=== PATIENT | male | born 1995 | race Caucasian/White ===

== ENCOUNTER → 2018-05-18 12:54 | Outpatient (CLI) | payer OTHER, SELFPAY ==
--- NOTE | 2018-05-18 12:54 | ONE_ITS ---
DATE: MAY 18, 2018 ASSESSMENT: Acute lumbar strain, consider disc etiology. PLAN: I contacted [facility] where he will be seen tomorrow morning. He will use Ibuprofen 800 mg. t.i.d., no more. Additionally he will obtain Acetaminophen 500 mg. tablets and use two of those t.i.d. between or with the Ibuprofen. He may use some Flexeril 10 mg. p.o. at h.s. p.r.n. and up to t.i.d. including the h.s. dose p.r.n. He understands this is likely to be very sedating. 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 Also a trial of Lidocaine 5% patches to be applied q. 12 hours p.r.n. Out of work as reflected on work status form. I will follow-up with him on Wednesday, sooner if needed. Greater than 50% of this visit was spent in planning and coordination of care. 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 SUBJECTIVE: Mr. Grande comes in today for evaluation of intense low back pain which he says began on WednesdayMay 16. He explains that he was involved in moving a tub of concrete when this occurred. He says he was putting pliers on to lift the tub, which typically weighs approximately 75 pounds when filled with concrete. He says on Wednesday however, per his account, the tub was inadvertently filled with in excess of 200 pounds. As he attempted to lift the tub he experienced a sudden intense pain across his lumbar region radiating down both legs. It was and remains worse on the left but it continues to radiate all the way down both legs. On the left it radiates to the ankle, sometimes to the toes and on the right it goes all the way to the mid-calf. The aching pain across the lumbar region in addition to the radiating pain down both lower extremities is described as constant. It is worse by sitting, transitioning from sit to stand and much worse when he walks. It is also worse bearing weight on the left leg. Since this event on Wednesday, he has tried to get control of the pain with hot baths, ice packs, Ibuprofen in unspecified amounts every 6 or so hours. He also obtained a back brace which he has been using. He is not sure that it is terribly helpful but he does note that he seems to have more discomfort when he is not wearing it. Discomfort across the low back is also worsened by rotation of his pelvis or rotation at the waist. He feels the brace is helpful in preventing that type of movement or minimizing it. He has difficulty answering questions about numbness and tingling but goes into a lot of detail about shock-like sensations which occur across the torso with any rotation or bending. He has been able to find some comfort with lying flat on the floor and has been able to sleep by sleeping on a mattress placed directly on the floor. REVIEW OF SYSTEMS: He denies loss of bladder or bowel control. No abdominal pain, nausea, vomiting or other GI complaints. No chest pain, cough, wheeze or dyspnea. No swelling of lower extremities. PAST MEDICAL HISTORY: 1. Cardiac murmur in the past. 2. He states he did have one episode of back pain a couple of years ago. He could not relate it to a specific incident but it was self-limiting and much less intense that this current event. Other past history is unremarkable. MEDICATIONS: He takes no routine medications. ALLERGIES: Penicillin and all cillins. SOCIAL: Single. Lives with his significant other and her family. HABITS: Smokes 1/2 a pack of cigarette daily. Chews one can of tobacco about every 3 days. He is usually physically active with frequent exercise. OBJECTIVE: This is a 23 year-old male who is alert, cooperative but in definite acute distress. He is teary and tense. He stands or paces throughout most of the visit. Vital Signs: Blood pressure 143/72, pulse 92 and regular, respirations 18, temperature 98.9. He is 5'11 and weighs 161.5 pounds. Head: Normal. Neck: Supple. Musculoskeletal: There is no tenderness to direct palpation of the thoracic or lumbar vertebrae. Posture is side-leaning to the right. He moves cautiously and slowly to and from the examination table but eventually he is able to lie supine. This seems to be the position of greatest comfort for him. There is an area of tenderness in the left lumbar region proximal to the left SI joint. Straight leg raises - each leg extends off the examination table 15 degrees. On the left there is ipsilateral lumbar pain. With right leg extended 15 degrees there is contralateral lumbar pain. DTRs - prepatellars are 1+ bilaterally. Achilles are 1+ bilaterally. Range of motion - evaluation very limited due to pain. He is not able to attempt a heel and toe walk due to intensity of pain. Sensory of lower extremities is intact.
== END ==
PROVIDERS: Visit Provider Nurse Practitioner Family
DX: M54.5 Low back pain (principal); S39.012A Strain of muscle, fascia and tendon of lower back, initial encounter; X50.0XXA Overexertion from strenuous movement or load, initial encounter; Y99.0 Civilian activity done for income or pay
CPT/HCPCS: 99203

== ENCOUNTER → 2018-05-30 11:37 | Outpatient (CLI) | payer OTHER, SELFPAY ==
--- NOTE | 2018-05-30 21:23 | ONE_ITS ---
DATE OF SERVICE: May 30, 2018 ASSESSMENT: Acute lumbar strain with discogenic signs. PLAN: Continue aggressive PT which has included aquatic therapy. Continue stretches and dry needling techniques as tolerated. I have asked him to be sure to communicate his concerns about right lower extremity pain which did seem to change following the last treatment. He is urged to continue walking on a daily basis. I urged him to keep track of the amount of time that he is walking and add to that by a minute or so on a daily basis as tolerated. I wrote a prescription today for a TENS unit which I feel could be very beneficial to him in terms of controlled pain further. Continue PT. Continue stretches. Continue Flexeril and Tylenol as below. Hold on the ibuprofen. Initiate prednisone taper 40 mg for 4 days, 30 mg for 3 days, 20 mg for 2 days, and 10 mg for 1 day. We discussed return to work with limitations. I will see him back in one week and expect to be able to return to some light duty if he continues to progress. Greater than 50% of this visit was spent in planning and coordination of care. 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 SUBJECTIVE: He comes in today for follow-up on acute back pain which he tells me has improved somewhat. He is attending Physical Therapy three times weekly. He says initially there were some transportation difficulties but that problem has been solved with the help of Samaria Zafar and his Nurse Human Geography Instructor. He is doing regular exercises and stretches under their guidance and he has been receiving dry needling treatments. He does express some concern that following Wednesday's treatment the pain radiating down his right leg to the calf has intensified. He does state, however, that the pain previously noted down the left posterior lower extremity has resolved. He continues to have difficulty with sitting for extended periods of time. He is able to stand and he is able to walk with greater ease. He still feels that his movements are rather slow and deliberate but recently he was able to walk a half mile to a store. He says he realized part way through the walk that about half that distance would have been better tolerated. He is using the Flexeril b.i.d. He does find it to be somewhat sedating during the daytime and he is using the combination of ibuprofen and Tylenol which he does not find to be very helpful. He says he gets the most relief when performing the squat exercises that were taught by PT. REVIEW OF SYSTEMS: Continue to deny loss of bladder or bowel control. No abdominal pain, nausea, vomiting, or other GI complaints. No chest pain, cough, wheeze, or dyspnea. PAST MEDICAL HISTORY: 1. Cardiac murmur in the past. 2. In regard to back pain, a single episode years ago which resolved. MEDICATIONS: He takes no routine medications but is currently usin. Ibuprofen 800 mg t.i.d. 2. Acetaminophen 1000 mg t.i.d. 3. Flexeril 10 mg at h.s. and once during the day. ALLERGIES: Penicillin. SOCIAL: Lives with his significant other and their family. HABITS: Smokes 1/2 a pack of cigarette daily. Chews one can of tobacco every 3 days. OBJECTIVE: Alert, pleasant, cooperative, seems more comfortable than at his previous evaluation. His posture is erect. No further side leaning. His gait is non- antalgic and he is able to sit through much of today's evaluation. Musculoskeletal: Mild tenderness to direct palpation of the lumbar vertebrae. No tenderness in the paraspinous muscles or the SI joints. DTRs - prepatellars are 1+ bilaterally. Achilles are also 1+ bilaterally. Straight leg raises - left leg extends 45 degrees with ipsilateral lumbar discomfort. Right leg extends about 45 degrees with right posterior thigh discomfort. Range of motion - fingertips reach midthigh. There is pain in the left lumbar region at the end of flexion. Minimal discomfort with extension of 20 degrees. There is no pain with lateral bend or rotation. Heel and toe walk are intact. Sensory of lower extremities is intact.
== END ==
PROVIDERS: Visit Provider Nurse Practitioner Family
DX: M54.5 Low back pain (principal); S39.012D Strain of muscle, fascia and tendon of lower back, subsequent encounter; X50.0XXD Overexertion from strenuous movement or load, subsequent encounter
CPT/HCPCS: 99214

== ENCOUNTER → 2018-06-06 10:46 | Outpatient (CLI) | payer OTHER, SELFPAY ==
--- NOTE | 2018-06-06 23:01 | ONE_ITS ---
DATE OF SERVICE: June 06, 2018 ASSESSMENT: Acute lumbar pain, radicular pain resolving. PLAN: We spent time crafting work restrictions which he feels he can follow. These will be presented to his employer. He will continue PT. Continue ibuprofen and Tylenol p.r.n. His nurse medical case manager who is present will obtain the TENS unit for him. He is eager to return to a full paycheck but clearly understands he has limitations at this point. I will see him back in one week. Greater than 50% of this visit was spent in planning and coordination of care. EMPLOYER: [employer] SUBJECTIVE: Mr. Grande returns for follow-up on low back pain which he tells me has continued to improve. He is attending PT three times weekly and he finds the aquatic PT to be very helpful. Additionally, treatments with dry needling techniques have provided some relief. Today he says he is more comfortable. Initially he says he experiences pressure in the right lumbar region with sitting, but during the interview the discomfort switches to the left lumbar region. He quantifies that at 2 on a scale of 1 to 10 and describes it as an aching sensation. It no longer radiates down either extremity. He has been doing some walking on a daily basis. He walks a mile, a half mile at a time with a short rest in between, and on some days he has repeated this for a total of two miles per day. He has also been advanced with some home exercises and manual techniques. He says he has not received his TENS unit yet and did not take a prednisone taper as directed. He continues to have difficulty with no transportation and this has been very limiting. REVIEW OF SYSTEMS: No abdominal pain, nausea, vomiting, or GI complaints. No loss of bladder or bowel control. No chest pain, cough, wheeze, or dyspnea. PAST MEDICAL HISTORY: 1. History of cardiac murmur. 2. Single episode of back pain a year ago which resolved completely. CURRENT MEDICATIONS: He takes no routine medications. He is using ibuprofen 800 mg once a day or b.i.d.; Tylenol 1000 mg b.i.d. He is no longer using the Flexeril. He is not using any lidocaine patches. ALLERGIES: Penicillin SOCIAL: Lives with his significant other and their young family. HABITS: Smokes a half pack of cigarettes daily. Chews a can of tobacco every three days. OBJECTIVE: He is alert, pleasant, cooperative. He has some difficulty with eye contact and does look distressed citing finances as the reason. He ambulates to and from the exam room with ease. No difficulty moving from chair to exam table. Musculoskeletal exam: There is some mild tenderness today in the paraspinous muscles of the left lateral thoracic region. No spasm. None in the lumbars and none to direct palpation of the thoracic or lumbar vertebrae. DTRs - prepatellars are 2+ bilaterally. Achilles are 1+ bilaterally. Straight leg raises - each leg extends about 60 degrees with central lumbar discomfort. Range of motion - fingertips reach just beyond knee level with left lumbar discomfort resulting at the end of that flexion. It is resolved quickly by extension. He can extend about 20 degrees, again with left lumbar discomfort resulting. No lumbar pain with lateral bend or rotation in either direction. Quft-[id number] walk are intact. Sensory of lower extremities is intact.
== END ==
PROVIDERS: Visit Provider Nurse Practitioner Family
DX: M54.5 Low back pain (principal); S39.012D Strain of muscle, fascia and tendon of lower back, subsequent encounter
CPT/HCPCS: 99214

== ENCOUNTER 2018-06-10 15:00 | Outpatient (RCR) | payer OTHER, SELFPAY ==
--- NOTE | 2018-05-19 09:00 | IE_ITS ---
Date: 05/19/18 Referring: Jolynn Pérez NP M.D. Diagnosis: Lumbar strain ? Disc P.T. Diagnosis: Acute LBP, likely discogenic SUBJECTIVE: History of Present Illness: Brennan presents to PT with complaints of acute onset of back pain which occurred from a work injury. He states that he was leveling out a concrete tub which required him to hold a plier type handle and tip a tub containing liquid concrete forward. He estimates this to be about 200# . He states that he lifted the tub forward only about an inch or two off the ground when he felt a sharp pain in the central portion of his low back. He is now experiencing continued central low back pain although with radiation down the back of both legs (L) > (R). He states that on the (L) side the pain goes down to the level of his toes, on the (R) down to the level of his ankle. Both occurring posteriorly. He states that he is unable to sit and feels that even with standing he has to lean to his (R) side. He has severe pain in any position. He denies any bowel or bladder changes, no numbness or tingling. Pain Rating: Severe. Pain Location: Central low back extending down the back of both legs (L) > (R) . Prior Level of Function: Active and (I) 23 year old male. 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 Current Level of Function: Currently unable to sit or stand for any sustained period. Pt reports that he is unable to find any comfortable position. He is unable to complete work duties and has been out of work since date of injury. Unable to drive, sleeping less than 2 hours a stretch. Previous Treatment: Pt was seen by [facility] yesterday and he was placed on Flexerol, 800mg Ibuprofen and Tylenol 500 mg every 6 hours. He does not feel that this is significantly effective for his pain. He has also been using ice at home although without improvement. Comorbidities: Pt denies. Falls in the last year: __X__ No ____Yes - How many? ____ - (if over 2, balance SM needs to be completed) Reported hospitalizations in the last year - __X__ No ____ Yes - Dates of admission/reason: Medications: Flexerol, Ibuprofen and Tylenol Standardized Measures: MOLBPDQ: __88% disability__ OBJECTIVE: Posture: In static standing pt has a significant (R) lateral shift . He has limited weightbearing through the (L) LE. Slightly forward flexed trunk positioning and pt intermittently relied on external support. He is able to sit during the session for only about a 60 sec stretch with obvious discomfort and extenuation of his lateral shift. Gait: Positive antalgia with decreased stance time on the (L) as compared to the (R). Pt struggles significantly with bed mobility requiring log rolling techniques although with fascial grimacing and increased time to perform. He struggles to transition from supine to prone and requires significant modification when turning from sitting to prone. Palpation: He has significant hypertrophy noted throughout the (L) paraspinals where he has a positive Histamine response. PIVM was not assessed due to the acute nature of pt symptoms. ROM: Forward flexion as tolerated only to about 20* Trunk extension last 10* with some mild symptom alleviation. Lateral flexion allows only slight movement to the (L) with primarily thoracic spine side bending, to the (R) he tolerates side bending with finger tips only 2 inches from the lateral joint line of the knee. With soft tissue drawing through the (L) leg. Hip motion allows 90* flexion (B) limited by LBP ER 45* (B) both pain producing and central low back. IR to 10* only with significant pain Strength: Unable to assess due to limited tolerance to prolonged positioning. Pt is able to heel and toe walk with pain reproduction although with no weakness noted. Neuro: Unable to assess myotomes, dermatomes are normal. DTRs are 2+ for the patella tendon reflex (B) and 0 at the achilles tendon (B). Special Tests: Pt has a positive SLUMP test on the (L) with severe pain resulting from even limited knee extension from 90* of flexion. Positive SLR at 30*. He has a mildly positive response to manual traction by leg pull. Excellent response to extension based treatments with complete alleviation of pain symptoms in the prone position. Treatment: Todays session consisted of evaluation followed by instruction in HEP consisting of pelvic tilt where he requires both verbal and tactile cues for limited completion within pain tolerance. He was instructed in prone press ups again with limited excursion although good symptom alleviation with completion. We discuss introduction of dry needling services for non billable tx. Risks and benefits were explained and a signed consent form can be found in scanned documents. Pt received non billable dry needling to PAs, L1-5 with less than 5 minutes spent in completion. He then received IASTM for down regulation through the paraspinals (B) followed by Rock Taping techniques for neuro modulation to the lumbar musculature. Post tx pt has normalized standing position with complete correction of his lateral shift. He also reports good symptom reduction. Reporting that he still has discomfort although significantly improved. IE: [id number] Direct treatment time: 60 minutes Total treatment time: 60 minutes ASSESSMENT: Patient is a 23 -year-old male, referred for PT services with the diagnosis of acute LBP . Patient presents with clinical signs and symptoms consistent with dx with symptoms likely of discogenic origin. My evaluation today is extremely limited due to the acute nature of patient's pain and his quite severe symptoms. I do feel that he will benefit from skilled PT intervention for extension based tx and efforts to reduce soft tissue dysfunction associated with acute injury and guarding. I have also strongly encouraged him to begin some passive traction by getting in the water over the next couple days which I anticipate will significantly reduce his pain symptoms, as demonstrated by the following impairment level findings: 1. Decreased trunk ROM, 2. Decreased hip motion (B), 3. Decreased LE strength (B), 4. Nerve tension with positive SLR and SLUMP test, 5. Soft tissue dysfunction. Impairments are contributing to the following functional limitations: 1. Unable to sit, 2. Decreased bed mobility, 3. Unable to tolerate prolonged standing or sitting, 4. Unable to complete work duties, 5. Unable to drive. Patient is assessed as: ____ Low 54879 __X__ Moderate 43272 ____ High 42538 complexity, based on the following: History: Acute onset of LBP in work related injury otherwise healthy 23 year old male. Examination: See above for functional limitations and impairments. Presentation: X Evolving Decision-Making: X Moderate complexity __X__ Patient requires skilled PT intervention to remediate the above functional limitations to return to: __X__ Premorbid level of function __X__ Return to full functional mobility __X__ Return to work demands __X__ Improve QOL Prognosis: __X__ Good GOALS: STG: __6__ weeks. 1. Restore appropriate upright posture without lateral shift. 2. Pt able to tolerate sitting greater than 30 minutes 3. Pt able to tolerate introduction of core stabilization activities not increase in pain. 4. Pt able to resume driving. LTG: __12__ weeks. 1. Pt able to tolerate standing greater than 2 hours. 2. Pt able to tolerate re-introduction of work activities. 3. Full trunk ROM PLAN: Patient to be seen 3 x per week, for 12 weeks, adjusting frequency of visits per patient symptoms and response to treatment. Treatment to include: X Aquatic Therapy during the acute phase of pts rehabilitation. Including core stabilization activities, gentle passive traction, gait training and postural strengthening activities. X Manual therapy - [id number]: Including soft tissue mobilization techniques with use of IASTM and taping techniques. Will also incorporate joint mobilizations and will continue with non billable dry needling. X Estim- Will consider use for pain modulation as pt's severe symptoms persist. X Therapeutic exercise - [id number] based activities as he responded very favorably to these today. Begin with prone press ups for completion throughout the course of the day and will progress this as he is able to tolerate.Will also begin introducing core stabilization activities and gentle ROM activities to restore mobility.. Thank you for this referral. Please do not hesitate to contact me with any questions or concerns regarding this patient's plan of care.
--- NOTE | 2018-05-23 12:19 | PTTR_ITS ---
DATE: 05/23/18 SUBJECTIVE: Brennan states that his back is feeling better than it was on Wednesday. He feels the treatment was very helpful. His pain seems to be isolated to the low back and into the left calf. RLE symptoms have resolved. Functional gains: Patient now able to sit for short periods. Compliant with HEP: x Yes No OBJECTIVE: Manual therapy: ([id number]): Patient continues to demonstrate a right lateral shift, which I'm able to correct with overpressure. He tolerates SLR to 40 degrees on the left, limited by LBP. Tolerates hip flexion to 95 degrees. He received gentle stretching into hip flexion, as well as traction via leg pull. In prone, he received grade II PA mobs, where he has significant muscle guarding and poor tolerance. He received UPA to left L3-4, where he is most significantly hypomobile, although he tolerates this poorly. He then received down regulation techniques via IASTM to the paraspinals with good tolerance. He was instructed in prone press ups for 10 reps with cues for breathing techniques. * x Electrical Stim Unattended - [id number]: Patient received interferential current at 1-150 MHz to lumbar paraspinals x 15 minutes. Direct treatment time: 35 minutes Total treatment time: 45 minutes
--- NOTE | 2018-05-24 11:09 | NT_ITS ---
05/24/18 Cancelled today's aquatic therapy session. Abena Fontaine, UNDERGROUND CONDUIT INSTALLER
--- NOTE | 2018-05-26 08:16 | AT_ITS ---
05/26/18 SUBJECTIVE: Vladimir reporting low grade pressure in the back with referral to the legs, 4-5/10 pain. During pool submersion he began to get muscle spasms due to the cold temperature of the water. He exited poured hot water on his back as I suggested and then he states that pain was completely eliminated. OBJECTIVE: Presents with mild antalgia. Gait immediately worsens upon exiting the water once his back is spasming barely making it to the locker room with decreased stance particularly through the (R) side with the (R) lateral shift. After using warm water on his back for approximately 15 minutes he is then able to exit the pool area with hardly any gait antalgia and pain is much improved. ATx1: Primarily complete decompression of the back today beginning with noodle hang stationary in the water and then performing some dynamic stationary bicycling. I have him perform some ambulation at shoulder level for as much lumbar decompression as possible. At this point however he is very cold and his muscles have spasm and he is shivering which is making his muscle pain worse. He exits the water as noted above to do some hot showering which allows for pain elimination. TX Time (Total): 15 minutes Direct Time 15 minutes ASSESSMENT: Vladimir initially had good pain relief with decompression of the water with elimination of back pain as well as leg pain but unfortunately due to the cold temperature of the water it made his muscles tighten and spasm worsening his symptoms. Fortunately this was easily reduced with hot water shower. He did leave with good gait antalgia and he is open to attempting water therapy again and perhaps in the future we will initiate some walking activities pre tx to get him warmed up, today I was anxious to do this due to his high pain level.
--- NOTE | 2018-05-27 11:30 | PTTR_ITS ---
DATE: 05/27/18 SUBJECTIVE: Vladimir states his back seems to be feeling a bit better. He is moving better day to day. He had an aquatic therapy appt yesterday and states he had a lot of difficulty in the water, although after standing in hot shower for 15 mins, his symptoms seem well managed for about 3 hours. He is open to going back and trying that again next week. He states his pain is primarily central low back as well as into the R calf and lateral aspect of the R foot. He denies any L LE symptoms today. Manual therapy: ([id number]). Trunk ROM allows extension to 10 degrees, forward flexion not assessed. He is demonstrating compensatory movement patterns with poor lumbar hinging and modified squatting activities during session. He requires significantly increase time to perform for bed mobility. He was instructed in appropriate squatting technique and golfer pick pulling machine operator, although he requires verbal and tactile cues for appropriate completion. He received connective tissue mobilization throughout the paraspinals where he continues to have tightness noted on the L. Received grade 2 PA mobilizations within his pain tolerance followed by instruction in prone press up activities for 10 reps for 5 sec hold and need for cues for deep breathing techniques and paraspinal relaxation. He received non-billable dry needling for less than 5 mins time to the paraspinals bilaterally L1-5. This was followed by IASTM for down regulation to the paraspinals and Rock taping in star pattern. Direct treatment time: 40 mins Total treatment time: 40 mins P: Patient will resume aquatic therapy for 1x next week, and follow up with me later in the week for a 2nd visit for continued manual mobilization. SS/dl
--- NOTE | 2018-05-31 12:18 | PTTR_ITS ---
DATE: 05/31/18 SUBJECTIVE: Brennan states that he felt pretty good after last session and feels good in the water. OBJECTIVE: * [X] Aquatic Therapy - ([id number] x[1]): Patient completed a therapeutic exercise program in an aquatic setting for general conditioning with decompression for pain relief, as per flow sheet. Added forward/backward walking, lateral walking, and marching to patient's program today, with complaints of burning pain in low back with lateral walking and marching, which was then discontinued for the remainder of the session. Patient required skilled instruction for for proper exercise performance and to avoid compensatory movement patterns. Patient begins and ends with deep end traction. Direct treatment time: 10 minutes Total treatment time: 30 minutes
--- NOTE | 2018-06-03 16:32 | PTTR_ITS ---
DATE: 06/03/18 SUBJECTIVE: Brennan states that his LE pain has completely resolved. He continues to have pain in his low back, primarily to the L side. He states that overall he is feeling significantly better. He was prescribed prednisone, although states that he was unable to get a ride to pick this up and subsequently hasn't started it. He is also concerned about the side effects and isn't sure he wants to go that route. He was also prescribed a TENS unit and is awaiting the arrival of that as well. OBJECTIVE: Therapeutic procedures ([id number]). Attempted forward flexion activities with pt able to tolerate fingertips to the knee level with exacerbation of L sided LBP. He does have significant paraspinal tone noted in forward flexed position. Trunk extension allows 20 degrees without pain. He was instructed in transverse abdominal activation in quadruped position with need for cues and tactile feedback to get appropriate recruitment as he demonstrates significant compensation. He was able to transition to alternating arm lifts with excellent tolerance. He will begin these at home with this home program. I also had him perform a lifting assessment. He demonstrates poor lifting technique with 15 lb. box, requiring significant cues and tactile feedback, as well as visual cues. He is able to progress to a 35 lb. box lift with good carryover of lifting techniques for single rep. Manual therapy: ([id number]). Pt received grade II PA mobilizations throughout the lumbar segments. This was followed by down regulation with IASTM to the paraspinals and up regulation to the thoraco lumbar fasciae. He then received rock taping in star pattern to the lumbar spine. Direct treatment time: 35 min Total treatment time: 35 min SS/fw
--- NOTE | 2018-06-09 15:09 | AT_ITS ---
06/09/18 Aquatic therapy [id number]: See flow sheet Provided skilled direction of exercise focused on traction, to modify and adjust them according to symptoms. Attempted some LE dynamic movements today, which he tolerated better then prior attempts. But, with eventual LBP. Transitioned from deep to shoulder depth water according to his pain level. He did not tolerate colder temps of the water today, and experience spasming of his back muscles. Tried to incorporate more activity with walking around the pull and movement of the arms, and while this would warm him up, it aggravated his back. Total treatment time: 30 minutes Direct treatment time: 15 minutes
--- NOTE | 2018-06-10 15:40 | PTTR_ITS ---
DATE: 06/10/18 SUBJECTIVE: Vladimir states that his back is feeling pretty good. He has been doing a great deal of walking, which he thinks is helping. He has been good about doing his HEP, which is getting easier. Pain number: 4/10 Compliant with HEP: x Yes No OBJECTIVE: Manual therapy: ([id number]): Patient received grade II PA mobs throughout the lumbar segments. He received lamina release to the lumbar musculature. ROM allows flexion with fingertips to the knees, extension to 20 degrees, and LF with fingertips to lateral joint line of the knees bilat. Therapeutic procedures ([id number]). * x HEP review: Patient requires cues for appropriate completion of pelvic tilts. * x Provided skilled instruction in proper exercise performance: Patient instructed in quadruped alternating hip extension, where he requires verbal and tactile cues for appropriate completion. He was also instructed in bridging, which he tolerates within limited range and with need for tactile cues. He was provided with handouts for home completion. * x Provided skilled manual cues to facilitate proper muscle recruitment and/ or movement pattern: Direct treatment time: 30 minutes Total treatment time: 30 minutes
== END 2018-06-10 23:59 | disposition home or self-care (01) ==
LOC: PT 15:00
PROVIDERS: Referring Provider Nurse Practitioner Family; Visit Provider Nurse Practitioner Family
DX: S39.012D Strain of muscle, fascia and tendon of lower back, subsequent encounter (principal)
CPT/HCPCS: 97014; 97110; 97113; 97140; 97162

== ENCOUNTER 2018-11-16 01:38 | Outpatient (CLI) | payer OTHER, SELFPAY ==
--- NOTE | 2018-11-16 10:37 | DI.MRI_ITS ---
SYMPTOM/DIAGNOSIS: LUMBAR STRAIN, RT LEG PAIN, LOW BACK PAIN LUMBAR SPINE MRI: T 1, T 2 and STIR sagittal, T 1 coronal and T 1 and T 2 axial sequences were performed. The marrow signal and conus medullaris appear normal. The T 11-12 through L 3-4 discs show normal height and hydration. At L 4-5, there is a moderate sized disc protrusion which is somewhat eccentric toward the right. There is apparent impingement on adjacent nerve roots and mild narrowing of the central canal. There is no neural foraminal narrowing. At L 5-S 1, there is a left lateral focal disc protrusion involving the lateral recess and left neural foramen. There is apparent nerve root impingement and neural foraminal narrowing. There is no significant central canal stenosis. IMPRESSION: Right paracentral disc protrusion at L 4-5. Left lateral disc protrusion at L 5-S 1.
== END 2018-11-16 01:58 ==
PROVIDERS: PCP Nurse Practitioner Family; Visit Provider Nurse Practitioner Family
DX: M79.604 Pain in right leg (principal); M54.5 Low back pain; S39.012A Strain of muscle, fascia and tendon of lower back, initial encounter; M51.26 Other intervertebral disc displacement, lumbar region; M51.27 Other intervertebral disc displacement, lumbosacral region
CPT/HCPCS: 72148